=== PATIENT | female | born 1935 | race Caucasian/White ===

== ENCOUNTER 2019-05-18 19:50 | Outpatient (CLI) | payer MEDICARE, OTHER | END 2019-05-18 19:51 | disposition short-term general hospital (02) | LOC: EMS 19:50 | PROVIDERS: ATTEND Surgery | DX: R55 Syncope and collapse (principal) | CPT/HCPCS: A0425; A0427; A0888 ==

== ENCOUNTER 2019-12-04 13:49 | Outpatient (CLI) | payer MEDICARE, OTHER | END 2019-12-04 23:59 | disposition critical access hospital (66) | LOC: EMS 13:49 | PROVIDERS: ATTEND Surgery | DX: R07.9 Chest pain, unspecified (principal); R42 Dizziness and giddiness; R06.02 Shortness of breath; R51 Headache; Z20.828 Contact with and (suspected) exposure to other viral communicable diseases | CPT/HCPCS: A0425; A0427 ==

== ENCOUNTER 2019-12-04 14:14 | Emergency (ER) | payer MEDICARE, OTHER ==
[2019-12-04 14:47] LABS: BASOPHILS % (AUTO) 0.2 %; EOSINOPHILS # (AUTO) 0.4 10^3/uL (0.0-0.7); EOSINOPHILS % (AUTO) 4.5 %; HGB - HEMOGLOBIN 14.3 g/dL (12.0-16.0); LYMPHOCYTES # (AUTO) 0.3 10^3/uL (1.5-3.5); LYMPHOCYTES % (AUTO) 3.3 %; MEAN CORPUSCULAR HEMOGLOBIN 33.4 pg (27.0-31.0); MEAN CORPUSCULAR HGB CONC 33.8 g/dL (32.0-36.0); MEAN CORPUSCULAR VOLUME 98.8 fL (81.0-99.0); MEAN PLATELET VOLUME 12.8 fL (7.9-10.8); MONOCYTES % (AUTO) 12.1 %; NEUTROPHILS # (AUTO) 6.8 10^3/uL (1.5-6.6); NEUTROPHILS % (AUTO) 79.3 %; PLT - PLATELET COUNT 107 10^3/uL (130-450); RED BLOOD COUNT 4.28 10^6/uL (4.20-5.40); RED CELL DISTRIBUTION WIDTH 14.5 % (12.0-15.0); WHITE BLOOD COUNT 8.5 x10^3/uL (4.8-10.8)
--- NOTE | 2019-12-04 14:54 | XRAY Report ---
PROCEDURE: Chest 1 View X-Ray INDICATIONS: Chest Pain TECHNIQUE: One view of the chest was acquired. COMPARISON: None found. FINDINGS: Surgical changes and devices: None. Lungs and pleura: No pleural effusions or pneumothorax. Lungs are abnormal with a generalized pulmo nary edema pattern and also a band of increased radiodensity across the junction of the middle and up per thirds of the left lung. Mediastinum: Mediastinal contours appear normal. Heart size is normal. Reduced inspiratory volume Bones and chest wall: No suspicious bony lesions. Overlying soft tissues appear unremarkable. IMPRESSION: No comparisons. The current appearance is potentially a manifestation of acute congestive heart failu re in the setting of chest pain. As noted, there is a band of increased radiodensity across the left lung emanating laterally from the left hilum. Follow-up plain film imaging is recommended to confirm resolution of these abnormalities. The band of increased radiodensity could conceivably represent a m anifestation of "central atelectasis" in the setting of a left hilar/perihilar mass. Reviewed by: José Miguel Olvera MD on 12/04/2019 2:53 PM PDT Approved by: José Miguel Olvera MD on 12/04/2019 2:53 PM PDT Station ID: [id number]
[2019-12-04 14:59] LABS: ALBUMIN 3.3 g/dL (3.2-5.5); BILIRUBIN,TOTAL 0.7 mg/dL (0.2-1.0); CALCIUM 8.8 mg/dL (8.5-10.3); TOTAL PROTEIN 6.5 g/dL (6.7-8.2)
--- NOTE | 2019-12-04 15:35 | ED Physician Documentation ---
History of Present Illness - Stated complaint Stated Complaint: CP - Chief complaint Chief Complaint: Cardiac - History obtained from History obtained from: Patient - Additonal information Additional information: 84-year-old female presents to the emergency department from her care facility for evaluation of chest pain and dyspnea. She reports that since she moved to her care facility from [place] about 6 or 7 months ago she has had chest pain and shortness of breath. Patient was given 325 mg of aspirin in route. And MEÑO shows that she has had multiple presentations to [facility] for similar. Patient states that the chest pain has worsened over the last week. She does not endorse that it is worse with exertion but often causes her to catch her breath. She has had no fevers. She denies any cough or hemoptysis. No weight loss. No nausea vomiting or PMH: COPD and lung cancer (s/p radiation therapy) She also reports that she has a history of lung cancer in the past for which she has had treatment in attendance with her is a POLST form that indicates she is a DNR. However no medical history or medications are with the patient from her care facility The nurse has indicated me that the patient takes Combivent only for her COPD. She did recently finish a prescription of Macrobid for urinary tract infection. Review of Systems Constitutional: denies: Fever, Chills Ears: denies: Ear pain Cardiac: reports: Chest pain / pressure, Palpitations Respiratory: reports: Dyspnea. denies: Cough GI: denies: Abdominal Pain, Abdominal Swelling, Nausea, Vomiting : denies: Dysuria, Frequency, Hesitancy Skin: denies: Rash, Lesions Musculoskeletal: denies: Neck pain, Back pain Neurologic: denies: Generalized weakness, Focal weakness, Numbness, Syncope, Seizure, Confused, Headache, Head injury Psychiatric: denies: Depressed, Suicidal PD PAST MEDICAL HISTORY - Allergies Allergies/Adverse Reactions: Allergies Allergy/AdvReac Type Severity Reaction Status Date / Time No Known Drug Allergies Allergy Verified 12/04/19 15:41 PD ED PE EXPANDED - General General: Alert, No acute distress, Well developed/nourished - HEENT HEENT: Atraumatic, PERRL, EOMI - Neck Neck: Supple w/out meningeal sx, No tenderness - Cardiac Cardiac: Regular Rate, Regular Rhythm, Murmur Present, Radial strong equal, Cap refill < 2 sec - Respiratory Respiratory: Clear to ausultation leslie. No: Distress, Labored - Abdomen Abdomen: Normal Bowel sounds. No: Tender to palpation - Extremities Extremities: Normal - Neuro Neuro: Alert and Oriented X 3, Normal finger nose, Normal speech. No: Confused - GCS Eye Opening: Spontaneous Motor: Obeys Commands Verbal: Oriented Total: 15 Results - Vitals Vitals: Vital Signs - 24 hr 12/04/19 12/04/19 12/04/19 14:29 14:32 15:02 Temperature 36.8 C Heart Rate 76 77 77 Respiratory 16 24 24 Rate Blood Pressure 140/71 H 136/72 H 135/72 H O2 Saturation 96 94 93 12/04/19 12/04/19 12/04/19 15:30 16:13 16:30 Temperature Heart Rate 77 76 76 Respiratory 19 23 16 Rate Blood Pressure 123/105 H 128/70 139/66 H O2 Saturation 95 95 94 12/04/19 17:00 Temperature Heart Rate 75 Respiratory 20 Rate Blood Pressure 141/80 H O2 Saturation 92 Oxygen O2 Source Room air - EKG (time done) 1423 Rate: Rate (enter#) (75) Rhythm: NSR [place]: Normal Intervals: Normal [place] QRS: Normal Ischemia: Non specific changes Compare to prior EKG: Old EKG unavailable Computer interpretation: Agree with computer - Labs Labs: Laboratory Tests 12/04/19 12/04/19 12/04/19 14:40 14:40 14:40 WBC 8.5 RBC 4.28 Hgb 14.3 Hct 42.3 MCV 98.8 MCH 33.4 H MCHC 33.8 RDW 14.5 Plt Count 107 L MPV 12.8 H Neut # (Auto) 6.8 H Lymph # (Auto) 0.3 L [place] # (Auto) 1.0 Eos # (Auto) 0.4 Baso # (Auto) 0.0 Absolute Nucleated RBC 0.00 Nucleated RBC % 0.0 Sodium 139 Potassium 3.3 L Chloride 99 L Carbon Dioxide 27 Anion Gap 13.0 BUN 13 Creatinine 1.0 Estimated GFR (MDRD) 53 L Glucose 110 H Calcium 8.8 Total Bilirubin 0.7 AST 16 ALT 16 Alkaline Phosphatase 64 Troponin I High Sens 8.2 B-Natriuretic Peptide Total Protein 6.5 L Albumin 3.3 Globulin 3.2 Albumin/Globulin Ratio 1.0 Lipase 26 12/04/19 12/04/19 14:40 16:35 WBC RBC Hgb Hct MCV MCH MCHC RDW Plt Count MPV Neut # (Auto) Lymph # (Auto) [place] # (Auto) Eos # (Auto) Baso # (Auto) Absolute Nucleated RBC Nucleated RBC % Sodium Potassium Chloride Carbon Dioxide Anion Gap BUN Creatinine Estimated GFR (MDRD) Glucose Calcium Total Bilirubin AST ALT Alkaline Phosphatase Troponin I High Sens 12.3 B-Natriuretic Peptide 194 H Total Protein Albumin Globulin Albumin/Globulin Ratio Lipase - Rads (name of study) CXR Radiology: Final report received (No comparisons. The current appearance is potentially a manifestation of acute congestive failure in the setting of chest pain. As noted there is a band of increased radiodensity across the left lung emanating laterally from the left 8 helium. Follow-up plain film imaging is recommended to confir) PD MEDICAL DECISION MAKING - ED course Complexity details: reviewed results, re-evaluated patient, d/w patient, d/w senior product consultant (Gonzalez) ED course: 84-year-old female presents to the emergency department for evaluation of chest pain. She states that she has had chest pain for many months especially since moving to [place] from [place] in April but has worsened over the last week. - Her chest x-ray suggests may be mild heart failure. However she has no leg swellings or crackles. Her BNP is not significantly elevated and is under 200. Her EKG is nonischemic. An initial troponin was 8. I did repeated after a number of hours in the emergency department and it had risen to 12.9. I d iscussed this case with Dr. Renetta Roth the hospitalist on-call and asked for admission for cardiac work-up. However Dr. Silva felt that an anginal equivalent was not present at this time and the patient did not need to be brought in for a cardiac stress testing. She advised that the patient should follow-up with the primary doctor and be seen as an outpatient. Departure - Departure Disposition: 01 Home, Self Care Clinical Impression: Chest pain Qualifiers: Chest pain type: unspecified Qualified Code(s): R07.9 - Chest pain, unspecified Condition: Stable Record reviewed to determine appropriate education?: Yes Instructions: ED Chest Pain Atypical Unkn Cause Comments: [place] your EKG today looks okay. Your troponins are not elevated. I think it is important that you schedule a close follow-up with your primary doctor to discuss this ED visit to see if he would like to make a referral for you to a dialysis social worker. If at any point you find that you have worsening chest pain or shortness of breath or develop any fevers or cough please return immediately to the emergency department. Because your granddaughter has tested positive for COVID-19 we are also screening you today for COVID 19
[2019-12-04 18:05] VITALS: BP 154/83
== END 2019-12-04 18:08 | disposition home or self-care (01) ==
LOC: EDUNIT# → ED 14:14
DX: R07.9 Chest pain, unspecified (principal); J44.9 Chronic obstructive pulmonary disease, unspecified; Z85.118 Personal history of other malignant neoplasm of bronchus and lung; Z66 Do not resuscitate; Z20.828 Contact with and (suspected) exposure to other viral communicable diseases
CPT/HCPCS: 36415; 71045; 80053; 83690; 83880; 84484; 85025; 93005; 99284; U0004

== ENCOUNTER 2020-04-20 16:21 | Outpatient (CLI) | payer MEDICARE, OTHER | END 2020-04-20 16:22 | disposition short-term general hospital (02) | LOC: EMS 16:21 | PROVIDERS: ATTEND Surgery | DX: R07.9 Chest pain, unspecified (principal); R07.1 Chest pain on breathing; R05 Cough | CPT/HCPCS: A0425; A0429 ==

== ENCOUNTER 2020-04-21 11:22 | Outpatient (CLI) | payer MEDICARE, OTHER | END 2020-04-21 11:23 | disposition short-term general hospital (02) | LOC: EMS 11:22 | PROVIDERS: ATTEND Surgery | DX: R42 Dizziness and giddiness (principal); R11.2 Nausea with vomiting, unspecified | CPT/HCPCS: A0425; A0427; A0888 ==

== ENCOUNTER 2021-02-10 17:55 | Outpatient (CLI) | payer MEDICARE, OTHER | END 2021-02-10 17:56 | disposition short-term general hospital (02) | LOC: EMS 17:55 | DX: Z04.3 Encounter for examination and observation following other accident (principal); M25.532 Pain in left wrist | CPT/HCPCS: A0425; A0429 ==

== ENCOUNTER 2021-03-23 15:02 | Outpatient (CLI) | payer MEDICARE, OTHER ==
--- NOTE | 2021-03-23 15:59 | XRAY Report ---
PROCEDURE: Knee 2 View RT INDICATIONS: KNEE PAIN TECHNIQUE: 2 views of the right knee(s) were acquired. COMPARISON: None. FINDINGS: BONES/JOINT: No acute, displaced fracture or dislocation. Small suprapatellar joint effusion. Diffus e osteopenia. Mild tricompartment osteophytosis. The joint spaces are maintained. SOFT TISSUES: No significant abnormality. Evidence of meniscal calcification. IMPRESSION: 1.No acute osseous abnormality. Reviewed by: Lucien Allen MD on 03/23/2021 3:57 PM PST Approved by: Lucien Allen MD on 03/23/2021 3:57 PM PST Station ID: [id number]
== END 2021-03-23 15:03 | disposition home or self-care (01) ==
LOC: DI 15:02
PROVIDERS: ATTEND Internal Medicine
DX: M25.561 Pain in right knee (principal)

== ENCOUNTER 2021-04-06 13:18 | Outpatient (CLI) | payer MEDICARE, OTHER | END 2021-04-06 13:19 | disposition critical access hospital (66) | LOC: EMS 13:18 | DX: R51.9 Headache, unspecified (principal); R53.83 Other fatigue; R09.02 Hypoxemia | CPT/HCPCS: A0425; A0429 ==

== ENCOUNTER 2021-04-06 13:37 | Inpatient (IN) | payer MEDICARE, OTHER ==
--- NOTE | 2021-04-06 13:56 | ED Physician Documentation ---
History of Present Illness - Stated complaint Stated Complaint: SOA - Chief complaint Chief Complaint: Resp - Additonal information Additional information: 85-year-old female is sent to the ER via EMS for evaluation of shortness of air and labored breathing. I was contacted by her care provider Janeen Lopez who reported that patient has recently been treated twice for pneumonia with Levaquin followed by Bactrim. However over the course of the last few days she has been having worsening shortness of air and this a.m. her oxygen saturations declined into the mid 80s. She is not typically oxygen dependent. Patient does have a history of dementia so somewhat limited from the patient. The patient also has a history of lung cancer which was treated with radiation only when she was a resident of [place]. Her primary care provider was in the process of trying to obtain an outpatient CAT scan for further evaluation of her lungs to determine if she had a return of cancer. Review of Systems Unable to obtain: Dementia, Other (chart) PD PAST MEDICAL HISTORY - Allergies Allergies/Adverse Reactions: Allergies Allergy/AdvReac Type Severity Reaction Status Date / Time No Known Drug Allergies Allergy Verified 04/06/21 13:47 PD ED PE EXPANDED - General General: Lethargic - Cardiac Cardiac: Regular Rate, Radial strong equal, Pedal strong equal, Cap refill < 2 sec - Respiratory Respiratory: Rhonchi (generalized rhonchi; sats decline to 84% room air). No: Clear to ausultation leslie, Distress, Labored - Abdomen Abdomen: Normal Bowel sounds, Tender to palpation (right side; no guarding or rebound) - Derm Derm: Normal color, Warm and dry - GCS Eye Opening: Spontaneous Motor: Obeys Commands Verbal: Confused Total: 14 Results - Vitals Vitals: Vital Signs - 24 hr 04/06/21 04/06/21 04/06/21 13:43 14:00 16:00 Temperature 36.6 C Heart Rate 58 L 55 L 48 L Respiratory 16 14 14 Rate Blood Pressure 108/53 L 112/57 L 128/68 O2 Saturation 87 L 95 99 Oxygen O2 Source Room air Oxygen Flow Rate 2 - EKG (time done) 1416 Rate: Rate (enter#) (55) Rhythm: NSR [place]: Normal Intervals: Normal [place]. No: Prolonged QT QRS: Low voltage Ischemia: Normal ST segments Compare to prior EKG: Old EKG unavailable Computer interpretation: Agree with computer - Labs Labs: Laboratory Tests 04/06/21 04/06/21 04/06/21 14:14 14:14 14:14 WBC 9.3 RBC 3.88 L Hgb 12.8 Hct 38.5 MCV 99.2 H MCH 33.0 H MCHC 33.2 RDW 14.3 Plt Count 127 L MPV 11.9 H Neut # (Auto) 7.8 H Lymph # (Auto) 0.4 L [place] # (Auto) 0.7 Eos # (Auto) 0.4 Baso # (Auto) 0.0 Absolute Nucleated RBC 0.00 Nucleated RBC % 0.0 Sodium 139 Potassium 3.7 Chloride 102 Carbon Dioxide 26 Anion Gap 11.0 BUN 13 Creatinine 0.8 Estimated GFR (MDRD) 69 L Glucose 93 Lactic Acid Calcium 8.7 Total Bilirubin 1.0 AST 16 ALT 13 Alkaline Phosphatase 126 H Troponin I High Sens 28.3 H* B-Natriuretic Peptide Total Protein 6.3 L Albumin 3.2 Globulin 3.1 Albumin/Globulin Ratio 1.0 Lipase 19 L Urine Color Urine Clarity Urine pH Ur Specific [place] Urine Protein Urine Glucose (UA) Urine Ketones Urine Occult Blood Urine Nitrite Urine Bilirubin Urine Urobilinogen Ur Leukocyte Esterase Ur Microscopic Review Urine Culture Comments 04/06/21 04/06/21 04/06/21 14:14 14:14 15:36 WBC RBC Hgb Hct MCV MCH MCHC RDW Plt Count MPV Neut # (Auto) Lymph # (Auto) [place] # (Auto) Eos # (Auto) Baso # (Auto) Absolute Nucleated RBC Nucleated RBC % Sodium Potassium Chloride Carbon Dioxide Anion Gap BUN Creatinine Estimated GFR (MDRD) Glucose Lactic Acid 1.0 Calcium Total Bilirubin AST ALT Alkaline Phosphatase Troponin I High Sens B-Natriuretic Peptide 298 H Total Protein Albumin Globulin Albumin/Globulin Ratio Lipase Urine Color YELLOW Urine Clarity CLEAR Urine pH 5.5 Ur Specific [place] 1.020 Urine Protein NEGATIVE Urine Glucose (UA) NEGATIVE Urine Ketones NEGATIVE Urine Occult Blood NEGATIVE Urine Nitrite NEGATIVE Urine Bilirubin NEGATIVE Urine Urobilinogen 1 (NORMAL) Ur Leukocyte Esterase NEGATIVE Ur Microscopic Review NOT INDICATED Urine Culture Comments NOT INDICATED - Rads (name of study) CXR Radiology: Final report received (Left parahilar hilar prominence recommend CT of the chest to differentiate lung scarring or consolidation versus mass or adenopathy) CT chest w Radiology: Final report received (Groundglass opacity in left upper lobe. There is mild volume loss this could be due to atelectasis or pneumonia. Small amount of pleural feud at the left major fissure. No pulmonary embolism no adenopathy) PD MEDICAL DECISION MAKING - ED course Complexity details: reviewed results, re-evaluated patient, considered differential ED course: 85-year-old female presents emergency department for evaluation of hypoxia and worsening cough. She does have a remote history of lung cancer. This was treated in [place] once in 2004 and again in 2013 with a gamma knife. She has recently completed courses of Bactrim and Levaquin. Her primary provider was seeing her today and found that she was developing progressive hypoxia and thus referred her to the ER for further evaluation. Chest x-ray suggested left perihilar/hilar prominence. Subsequent CT of the chest showed a focal pneumonia in the left upper lobe. CT of the abdomen was unremarkable. No findings of cancer. Screening labs show no leukocytosis however she has had persistent hypoxia when on room air here in the ER. She has a high curb 65 and PSI index score therefore she will be admitted to the hospital. I discussed this case with Dr. Alonso who will admit her. I have initiated ceftriaxone and azithromycin in the ER. Patient does not present as septic Departure - Departure Disposition: 66 [facility] DC/Xfer Clinical Impression: Hypoxia, History of lung cancer, Elevated troponin Left upper lobe pneumonia Qualifiers: Pneumonia type: due to unspecified organism Qualified Code(s): J18.9 - Pneumonia, unspecified organism Dementia Qualifiers: Dementia type: unspecified type Dementia behavioral disturbance: without behavioral disturbance Qualified Code(s): F03.90 - Unspecified dementia without behavioral disturbance
--- NOTE | 2021-04-06 14:12 | XRAY Report ---
PROCEDURE: Chest 1 View X-Ray INDICATIONS: chest pain TECHNIQUE: One view of the chest was acquired. COMPARISON: 12/04/2019. FINDINGS: Surgical changes and devices: None. Lungs and pleura: Linear opacities noted in the left midlung which may represent parenchymal scarring or atelectasis. Prominence noted in the left hilum could be due to scarring, however adenopathy or p erihilar mass can't be excluded by plain from radiograph. Elevation of the right hemidiaphragm. Mediastinum: Mediastinal contours appear normal. Heart size is normal. Bones and chest wall: No suspicious bony lesions. Overlying soft tissues appear unremarkable. IMPRESSION: Left parahilar/hilar prominence. Recommend CT scan of the chest to differentiate lung scarring or con solidation from hilar/parahilar mass or adenopathy. Reviewed by: Mei Peñaloza MD, PhD on 04/06/2021 2:11 PM PST Approved by: Mei Peñaloza MD, PhD on 04/06/2021 2:11 PM PST Station ID: [id number]
[2021-04-06] MEDS ORDERED: IOPAMIDOL-300 100 ML VIAL ONE (14:15)
[2021-04-06 14:21] LABS: BASOPHILS % (AUTO) 0.3 %; EOSINOPHILS # (AUTO) 0.4 10^3/uL (0.0-0.7); HCT - HEMATOCRIT 38.5 % (37.0-47.0); HGB - HEMOGLOBIN 12.8 g/dL (12.0-16.0); LYMPHOCYTES # (AUTO) 0.4 10^3/uL (1.5-3.5); LYMPHOCYTES % (AUTO) 3.9 %; MEAN CORPUSCULAR HGB CONC 33.2 g/dL (32.0-36.0); MEAN CORPUSCULAR VOLUME 99.2 fL (81.0-99.0); MEAN PLATELET VOLUME 11.9 fL (7.9-10.8); MONOCYTES # (AUTO) 0.7 10^3/uL (0.0-1.0); MONOCYTES % (AUTO) 7.8 %; NEUTROPHILS # (AUTO) 7.8 10^3/uL (1.5-6.6); NEUTROPHILS % (AUTO) 83.7 %; PLT - PLATELET COUNT 127 10^3/uL (130-450); RED BLOOD COUNT 3.88 10^6/uL (4.20-5.40); RED CELL DISTRIBUTION WIDTH 14.3 % (12.0-15.0); WHITE BLOOD COUNT 9.3 x10^3/uL (4.8-10.8)
[2021-04-06 14:39] LABS: ALBUMIN 3.2 g/dL (3.2-5.5); CALCIUM 8.7 mg/dL (8.5-10.3); CREATININE 0.8 mg/dL (0.4-1.0); POTASSIUM 3.7 mmol/L (3.5-5.0); TOTAL PROTEIN 6.3 g/dL (6.7-8.2)
[2021-04-06 15:43] LABS: BILIRUBIN,URINE NEGATIVE (NEGATIVE); GLUCOSE, URINE (UA) NEGATIVE (NEGATIVE); KETONES,URINE (UA) NEGATIVE (NEGATIVE); LEUKOCYTE ESTERASE, URINE NEGATIVE (NEGATIVE); NITRITE,URINE NEGATIVE (NEGATIVE); OCCULT BLOOD,URINE NEGATIVE (NEGATIVE); PH,URINE 5.5 PH (5.0-7.5); PROTEIN,URINE NEGATIVE (NEGATIVE); UROBILINOGEN,URINE 1 (NORMAL) E.U./dL (NORMAL)
[2021-04-06 15:47] LABS: CLARITY,URINE CLEAR (CLEAR)
--- NOTE | 2021-04-06 15:49 | CT Report ---
PROCEDURE: CHEST W INDICATIONS: recent cough, tx for pneumonia; hx of lung ca CONTRAST: IV CONTRAST: Isovue 300 ml: 100 PO CONTRAST: *NO PO CONTRAST TECHNIQUE: After the administration of intravenous contrast, 1 mm axial images were acquired from the pulmonary apices through the posterior costophrenic angles. Axial 5 mm soft tissue kernel reconstructions were performed as well as 8 mm axial MIP and coronal and sagittal 5 mm reformations. For radiation dose reduction, the following was used: automated exposure control, adjustment of mA and/or kV according to patient size. COMPARISON: Same day CT abdomen and pelvis. CXR earlier today, 12/04/2019. FINDINGS: Image quality: Excellent. Lungs and pleura: There is a small amount pleural fluid at the posterior left major fissure which ma y be loculated. There is a trace amount of dependent pleural fluid bilaterally. There is mild bibasil ar hazy opacity. There is left upper lobe volume loss. There is mild ground glass opacity in the left upper lobe. There is moderate emphysematous change. There is bronchial wall thickening. The central airways are clear. There may be a mucous plugging in the region of the left hilum. No pneumothorax. Mediastinum: Heart size is within normal limits. Coronary artery calcifications. No pericardial eff usion. No mediastinal or hilar adenopathy by size criteria. Thoracic aorta and central pulmonary ar teries are normal in size. No pulmonary embolism. Esophagus is normal in caliber. No hiatal hernia. Bones and chest wall: No suspicious bony lesions. Kyphosis. No vertebral body compression fractures. No axillary or supraclavicular adenopathy by size criteria. The thyroid is normal in size and ther e are no incidental findings. Abdomen: Please see separately dictated CT abdomen and pelvis. IMPRESSION: 1. Mild ground glass opacity in the left upper lobe. There is mild volume loss. This could be due to atelectasis or pneumonia. 2. Small amount of pleural fluid at the left major fissure. It is possible this fluid could be locula mariana. Trace deep and and pleural effusions. 3. No pulmonary embolism. No adenopathy. Reviewed by: Janusz Baker MD on 04/06/2021 3:48 PM PST Approved by: Janusz Baker MD on 04/06/2021 3:48 PM PST Station ID: [id number]
--- NOTE | 2021-04-06 15:57 | CT Report ---
PROCEDURE: Abdomen/Pelvis W INDICATIONS: Cough, hypoxia, history of cancer CONTRAST: IV CONTRAST: Isovue 300 ml: 100 PO CONTRAST: *NO PO CONTRAST TECHNIQUE: After the administration of intravenous contrast, 5 mm thick sections acquired from the diaphragms to the symphysis. 5 mm thick coronal and sagittal reformats were acquired. For radiation dose reducti on, the following was used: automated exposure control, adjustment of mA and/or kV according to penelope ent size. COMPARISON: CT chest also performed today. FINDINGS: Image quality: Excellent. ABDOMEN: Lung bases: Trace pleural effusions seen. Bibasilar atelectasis. Possible small hiatal hernia. Please see separate dictated same day CT chest. Solid organs: Liver and spleen are normal in size and enhancement. Multiple well-circumscribed hepat ic hypodensities in the liver. These have the appearance of benign cysts. Gallbladder is distended. No calcified gallstones. Biliary system is non dilated. Pancreas enhances normally. No adrenal nod ules. Kidneys demonstrate normal size and enhancement, without hydronephrosis. Right kidney superior pole cortical hypodensity which is too small to further characterize. Peritoneum and bowel: Bowel loops demonstrate normal wall thickness and caliber. Diffuse diverticul osis. Normal appendix. No free fluid or air. Nodes and vessels: No retroperitoneal or mesenteric adenopathy by size criteria. Infrarenal abdomina l aortic ectasia measuring 2.4 cm. Right renal artery is duplicated. Miscellaneous: No ventral hernias. PELVIS: Genitourinary: Bladder wall thickness is normal. Calcified uterine fibroid. Miscellaneous: No inguinal hernias or adenopathy. Bones: Bones have a heterogeneous appearance. No destructive osseous lesion seen. No vertebral body c ompression fracture. IMPRESSION: 1. Heterogeneous appearance of the vertebral column. No obstructive osseous lesion is seen. Consider further evaluation with MRI or nuclear medicine bone scan. 2. No adenopathy. 3. No acute inflammatory process demonstrated. No free fluid. Please see separately dictated same day CT chest. Reviewed by: Janusz Baker MD on 04/06/2021 3:56 PM [facility] Approved by: Janusz Baker MD on 04/06/2021 3:56 PM PST Station ID: [id number]
[2021-04-06] MEDS ORDERED: cefTRIAXone 2 GM in SODIUM CHLORIDE 0.9% MINIBAG 100 ML IV STA (16:18)
[2021-04-06] MEDS ORDERED: AZITHROMYCIN INJ 500 MG in SODIUM CHLORIDE 0.9% 250 ML IV STA (16:18)
[2021-04-06] MEDS ORDERED: SODIUM CHLORIDE FLUSH 0.9% 10 ML SYRINGE IVP PRN (16:53)
[2021-04-06] MEDS ORDERED: ONDANSETRON ODT 4 MG TABLET TL PRN (16:53)
[2021-04-06] MEDS ORDERED: ACETAMINOPHEN 325 MG TABLET PO PRN ×2 (16:53→20:35)
[2021-04-06] MEDS ORDERED: LACTATED RINGERS 1,000 ML IV SCH (17:00)
[2021-04-06 17:59] LABS: B. PARAPERTUSSIS- RESP PCR PAN NOT DETECTED; B. PERTUSSIS- RESP PCR PANEL NOT DETECTED; C. PNEUMONIAE- RESP PCR PANEL NOT DETECTED; CORONAVIRUS 229E-RESP PCR NOT DETECTED; CORONAVIRUS HKU1-RESP PCR NOT DETECTED; CORONAVIRUS NL63-RESP PCR NOT DETECTED; CORONAVIRUS OC43-RESP PCR NOT DETECTED; HUMAN METAPNEUMOVIRUS NOT DETECTED; INFLUENZA A- RESP PCR PANEL NOT DETECTED; INFLUENZA B - RESP PCR PANEL NOT DETECTED; M. PNEUMONIAE- RESP PCR PANEL NOT DETECTED; PARAINFLUENZA VIRUS 1 NOT DETECTED; PARAINFLUENZA VIRUS 2 NOT DETECTED; PARAINFLUENZA VIRUS 3 NOT DETECTED; PARAINFLUENZA VIRUS 4 NOT DETECTED; RHINOVIRUS/ENTEROVIRUS NOT DETECTED; RSV- RESP PCR PANEL NOT DETECTED; SARS-CoV-2 -RESP PCR PANEL NOT DETECTED
[2021-04-06] MEDS: SODIUM CHLORIDE FLUSH 0.9% 10 ML SYRINGE IVP SCH ×2 (18:12→23:58)
--- NOTE | 2021-04-06 19:57 | HISTORY & PHYSICAL EXAMINATION ---
Chief Complaint - Chief Complaint Chief Complaint: SOB, cough, sent in from PCP office due to desaturation on r.a. History of Present Illness - Admitted From Admitted From:: ED - History Obtained From History obtained from: ED provider and the patient - History of Present Illness HPI Comment/Other: This is a 85-year-old white female with history of dementia who lives at [facility], and history of lung cancer (treated with radiation in 2004 and gamma knife in 2013 in [place]). The patient has recently required 2 courses of treatment for pneumonia, having received Levaquin and then Bactrim as an outpatient. Despite this, she has had worsening shortness of breath over the last 2 to 3 days. She was seen by her PCP, Janeen Lopez, today and oxygen saturation in the PCP office was 84% on room air and the patient was sent to the ED. There had been a plan to do outpatient chest CT to evaluate if the lung cancer had recurred. In our ED she was saturating at 87% on room air and was mildly tachypneic. A CT chest was done that showed left upper lobe pneumonia (read as ground glass opacification) and trace bilateral pleural effusion, no description of a lung mass or lymphadenopathy. In the ED, the patient was started on supplemental O2 and given Ceftriaxone and Zithromax treatment for a community-acquired pneumonia and is being admitted to the Hospitalist service. The patient provides very little details of her history because of her dementia, but feels better now except for a hacking, wet cough, that is non-productive. A POLST form is available and the patient is a DNR and wants comfort-focus treatment. 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 She quit smoking in 2004 and drinks no alcohol. - Substance History Use: Uses substance without health or social issues: NONE Dependence: Experiences withdrawal or developed tolerances: NONE - POLST Patient has POLST: Yes POLST Status: DNR Meds/Allgy - Home Medications Home Medications: Ambulatory Orders Medication Instructions Recorded Confirmed Citalopram [CeleXA] 10 mg PO DAILY 04/06/21 Donepezil [Aricept] 5 mg PO DAILY 04/06/21 - Allergies Allergies/Adverse Reactions: Allergies Allergy/AdvReac Type Severity Reaction Status Date / Time No Known Drug Allergies Allergy Verified 04/06/21 13:47 Review of Systems - Constitutional Constitutional: reports: Weakness - Respiratory Respiratory: reports: Cough, SOB with exertion - All Other Systems All Other Systems: reports: Other (Limited ROS because of the patient's dementia with significant confusion and poor memory) Exam - Vital Signs Reviewed Vital Signs: Yes Vital Signs: Vital Signs x48h Temp Pulse Pulse Resp BP BP Pulse Ox 04/06/21 17:45 36.6 C 56 L 16 132/66 H 100 04/06/21 16:00 48 L 14 128/68 99 04/06/21 14:00 55 L 14 112/57 L 95 04/06/21 13:43 36.6 C 58 L 16 108/53 L 87 L - Physical Exam General Appearance: positive: No acute distress, Alert, Other (alopecia) Eyes Bilateral: positive: Normal inspection, EOMI ENT: positive: ENT inspection nml, No signs of dehydration Neck: positive: Nml inspection Cardiovascular: positive: Regular rate & rhythm, No murmur Abdomen: positive: Non-tender, Nml bowel sounds, No distention Skin: positive: Warm, Dry Extremities: positive: Non-tender, No pedal edema Neurologic/Psychiatric: positive: Motor nml, Disoriented to time (She said the date was "") Conclusion/Plan - Problem List (1) Acute respiratory failure with hypoxia Conclusion/Plan: The etiology is her infiltrate on chest imaging. We will treat the underlying cause. Continue with supplemental oxygen, weaning down as possible, keeping sats greater than 92% (2) Left upper lobe pneumonia Conclusion/Plan: She will be treated with empiric ceftriaxone and Zithromax for a community- acquired pneumonia. The CT scan does suggest there is evidence of a mucous plug in the area that has the groundglass opacification therefore we will start incentive spirometry and RT for clearance of secretions. Continue empiric ceftriaxone and Zithromax. Start Mucinex. Start probiotics Continue with supplemental oxygen. Will order PT and OT evaluation Qualifiers: Pneumonia type: due to unspecified organism Qualified Code(s): J18.9 - Pneumonia, unspecified organism (3) Dementia Conclusion/Plan: Await for her medications to be reconciled, resume any dementia medicines that she is on, is the plan. Qualifiers: Dementia type: unspecified type Dementia behavioral disturbance: without behavioral disturbance Qualified Code(s): F03.90 - Unspecified dementia without behavioral disturbance (4) History of lung cancer Conclusion/Plan: CT scan was done that did not show evidence of lung mass or perihilar lymph nodes. - Lab Results Fish Bones: 04/06/21 14:14 04/06/21 14:14 - Diagnostic Imaging Results Diagnostic Imaging Results: positive: Final report reviewed - Other Other Results/Comments: Attestation: The patient is expected to be discharged or transferred to another facility for 96 hours: Yes.
[2021-04-06] MEDS ORDERED: IOPAMIDOL-300 100 ML VIAL IVP ONE (20:36)
[2021-04-06] MEDS: guaiFENesin/CODEINE 5 ML UDC PO PRN (21:48)
[2021-04-06] MEDS: guaiFENesin 600 MG TABLET PO SCH (21:48)
[2021-04-07 06:41] LABS: BASOPHILS % (AUTO) 0.5 %; EOSINOPHILS # (AUTO) 0.4 10^3/uL (0.0-0.7); EOSINOPHILS % (AUTO) 6.4 %; HCT - HEMATOCRIT 37.5 % (37.0-47.0); HGB - HEMOGLOBIN 12.4 g/dL (12.0-16.0); LYMPHOCYTES # (AUTO) 0.4 10^3/uL (1.5-3.5); MEAN CORPUSCULAR HGB CONC 33.1 g/dL (32.0-36.0); MEAN CORPUSCULAR VOLUME 99.7 fL (81.0-99.0); MEAN PLATELET VOLUME 12.3 fL (7.9-10.8); MONOCYTES # (AUTO) 0.5 10^3/uL (0.0-1.0); MONOCYTES % (AUTO) 9.5 %; NEUTROPHILS # (AUTO) 4.1 10^3/uL (1.5-6.6); NEUTROPHILS % (AUTO) 75.4 %; PLT - PLATELET COUNT 122 10^3/uL (130-450); RED BLOOD COUNT 3.76 10^6/uL (4.20-5.40); RED CELL DISTRIBUTION WIDTH 14.2 % (12.0-15.0); WHITE BLOOD COUNT 5.5 x10^3/uL (4.8-10.8)
[2021-04-07 07:42] LABS: CALCIUM 8.3 mg/dL (8.5-10.3); CREATININE 0.8 mg/dL (0.4-1.0); POTASSIUM 3.3 mmol/L (3.5-5.0)
[2021-04-07] MEDS ORDERED: cefTRIAXone 2 GM in SODIUM CHLORIDE 0.9% MINIBAG 100 ML IV SCH (09:00)
[2021-04-07] MEDS ORDERED: POTASSIUM CHLORIDE 20 MEQ TABLET PO ONE (09:12)
[2021-04-07] MEDS: AZITHROMYCIN INJ 500 MG in SODIUM CHLORIDE 0.9% 250 ML IV SCH (09:31)
[2021-04-07] MEDS: SACCHAROMYCES BOULARDII 250 MG CAPSULE PO SCH ×2 (09:31→17:34)
[2021-04-07] MEDS: ENOXAPARIN 40 MG/0.4 ML SYRINGE SUBQ SCH (09:35)
[2021-04-07] MEDS: guaiFENesin 600 MG TABLET PO SCH ×2 (09:35→21:24)
[2021-04-07] MEDS: cefTRIAXone 2 GM in SODIUM CHLORIDE 0.9% MINIBAG 100 ML IV SCH (10:30)
[2021-04-07] MEDS: SODIUM CHLORIDE FLUSH 0.9% 10 ML SYRINGE IVP SCH ×2 (11:00→17:35)
--- NOTE | 2021-04-07 11:33 | PHARMACY PROGRESS NOTE ---
- Best Possible Medication History Admit Date and Time: 04/06/21 3512 Processed by: Pharmacy Medication History completed: Yes Patient Interview: Completed As the person ultimately responsible for medication therapy, providers are able to order a medication from an existing home medication list in [facility] via the "Reconcile Routine" prior to Confirmation of that medication by legal support analyst. Such practice is discouraged except when the physician, in their clinical cristian gment, deems that a medical need exists for a medication without regard to previous use.
--- NOTE | 2021-04-07 17:19 | PROVIDER PROGRESS NOTE ---
Subjective - Prog Note Date Prog Note Date: 04/07/21 - Subjective Subjective: She feels improved from a dyspnea standpoint. Still has a cough. She does not have her glasses so has had a difficult time seeing. Current Medications - Current Medications Current Medications: Active Medications Acetaminophen (Acetaminophen 325 Mg Tablet) 650 mg PO Q4HR PRN PRN Reason: Pain or Fever > 38C (100.4F) Enoxaparin Sodium (Enoxaparin 40 Mg/0.4 Ml Syringe) 40 mg SUBQ DAILY [facility] Last Admin: 04/07/21 09:35 Dose: 40 mg Documented by: Guaifenesin (Guaifenesin 600 Mg Tablet) 600 mg PO BID [facility] Last Admin: 04/07/21 09:35 Dose: 600 mg Documented by: Guaifenesin/Codeine Phosphate (Guaifenesin/Codeine 5 Ml Udc) 5 ml PO Q6HR PRN PRN Reason: Cough Last Admin: 04/06/21 21:48 Dose: 5 ml Documented by: Azithromycin 500 mg/ Sodium (Chloride) 250 mls @ 250 mls/hr IV DAILY [facility] Stop: 04/08/21 09:59 Last Infusion: 04/07/21 10:31 Dose: Infused Documented by: Ceftriaxone Sodium 2 gm/ (Sodium Chloride) 100 mls @ 200 mls/hr IV DAILY [facility] Stop: 04/10/21 09:29 Last Infusion: 04/07/21 11:00 Dose: Infused Documented by: Ondansetron HCl (Ondansetron Odt 4 Mg Tablet) 4 mg TL Q6HR PRN PRN Reason: Nausea / Vomiting Saccharomyces Boulardii (Saccharomyces Boulardii 250 Mg Capsule) 250 mg PO BIDWM [facility] Last Admin: 04/07/21 09:31 Dose: 250 mg Documented by: Sodium Chloride (Sodium Chloride Flush 0.9% 10 Ml Syringe) 10 ml IVP PRN PRN PRN Reason: NEEDED PER PROVIDER ORDERS Sodium Chloride (Sodium Chloride Flush 0.9% 10 Ml Syringe) 10 ml IVP 0100,0900,1700 [facility] Last Admin: 04/07/21 11:00 Dose: 10 ml Documented by: Citalopram [CeleXA] 10 mg PO DAILY 04/06/21 Donepezil [Aricept] 5 mg PO DAILY 04/06/21 Docusate Sodium 100Mg Capsule [Colace 100Mg Capsule] 100 mg PO BID 04/07/21 Lifitegrast [Xiidra] 1 drops EACHEYE BID 04/07/21 Nitrofurantoin Macrocrystal [Macrodantin] 50 mg PO QPM 04/07/21 Objective - Vital Signs/Intake & Output Reviewed Vital Signs: Yes Vital Signs: Vital Signs x48h Temp Pulse Pulse Pulse Resp BP BP 04/07/21 10:45 68 67 114/49 L 04/07/21 10:00 36.4 C L 66 20 109/53 L BP Pulse Ox 04/07/21 10:45 121/55 L 04/07/21 10:00 91 L Intake & Output: Intake & Output 04/04/21 04/05/21 04/06/21 04/07/21 23:59 23:59 23:59 23:59 Intake Total 450 2009 Balance 450 2009 - Objective General Appearance: positive: No acute distress, Alert Eyes Bilateral: positive: Normal inspection, Conjunctivae nml ENT: positive: ENT inspection nml, Other (Nasal cannula in place.) Neck: positive: Nml inspection Respiratory: positive: No respiratory distress, Rhonchi. negative: Wheezes, Rales Cardiovascular: positive: Regular rate & rhythm. negative: Tachycardia Abdomen: positive: Non-tender, No distention. negative: Tenderness Skin: positive: Warm, Dry Extremities: positive: No pedal edema Neurologic/Psychiatric: negative: Disoriented to person, Disoriented to place - Lab Results Fish Bones: 04/07/21 06:07 04/07/21 06:07 Other Labs: Lab Results x24hrs 04/07/21 04/07/21 04/06/21 Range/Units 06:07 06:07 15:24 WBC 5.5 (4.8-10.8) x10^3/uL RBC 3.76 L (4.20-5.40) 10^6/uL Hgb 12.4 (12.0-16.0) g/dL Hct 37.5 (37.0-47.0) % MCV 99.7 H (81.0-99.0) fL MCH 33.0 H (27.0-31.0) pg MCHC 33.1 (32.0-36.0) g/dL RDW 14.2 (12.0-15.0) % Plt Count 122 L (130-450) 10^3/uL MPV 12.3 H (7.9-10.8) fL Neut # (Auto) 4.1 (1.5-6.6) 10^3/uL Lymph # (Auto) 0.4 L (1.5-3.5) 10^3/uL Pierce # (Auto) 0.5 (0.0-1.0) 10^3/uL Eos # (Auto) 0.4 (0.0-0.7) 10^3/uL Baso # (Auto) 0.0 (0.0-0.1) 10^3/uL Absolute Nucleated RBC 0.00 x10^3/uL Nucleated RBC % 0.0 /100WBC Sodium 137 (135-145) mmol/L Potassium 3.3 L (3.5-5.0) mmol/L Chloride 102 (101-111) mmol/L Carbon Dioxide 26 (21-32) mmol/L Anion Gap 9.0 (6-13) BUN 15 (6-20) mg/dL Creatinine 0.8 (0.4-1.0) mg/dL Estimated GFR (MDRD) 69 L (>89) Glucose 81 (70-100) mg/dL Calcium 8.3 L (8.5-10.3) mg/dL Nasal Adenovirus (PCR) NOT DETECTED Nasal B. parapertussis DNA (PCR) NOT DETECTED Nasal Coronavir 229E PCR NOT DETECTED Nasal Coronavir HKU1 PCR NOT DETECTED Nasal Coronavir NL63 PCR NOT DETECTED Nasal Coronavir OC43 PCR NOT DETECTED Nasal Enterovir/Rhinovir PCR NOT DETECTED Nasal Influenza B PCR NOT DETECTED Nasal Influenza A PCR NOT DETECTED Nasal Parainfluen 1 PCR NOT DETECTED Nasal Parainfluen 2 PCR NOT DETECTED Nasal Parainfluen 3 PCR NOT DETECTED Nasal Parainfluen 4 PCR NOT DETECTED Nasal RSV (PCR) NOT DETECTED Nasal B.pertussis DNA PCR NOT DETECTED Nasal C.pneumoniae (PCR) NOT DETECTED Haim Human Metapneumo PCR NOT DETECTED Nasal M.pneumoniae (PCR) NOT DETECTED Nasal SARS-CoV-2 (PCR) NOT DETECTED ABX Reporting Has patient been on IV antibiotics over the past 48 hours?: Yes Assessment/Plan - Problem List (1) Left upper lobe pneumonia Impression: This is the cause of her hypoxia and dyspnea. Imaging revealed left upper lobe infiltrate. She is improved today but continues to require supplemental oxygen. We will keep her on ceftriaxone and azithromycin. We will look to transition her to oral antibiotics tomorrow. Qualifiers: Pneumonia type: due to unspecified organism Qualified Code(s): J18.9 - Pneumonia, unspecified organism (2) Hypoxia Impression: This is secondary to the pneumonia. She continues to require 1 to 2 L of oxygen via nasal cannula. Plan as mentioned above. (3) Dementia Impression: Stable. We are continuing her home medications. Qualifiers: Dementia type: unspecified type Dementia behavioral disturbance: without behavioral disturbance Qualified Code(s): F03.90 - Unspecified dementia without behavioral disturbance (4) History of lung cancer Impression: Imaging did not reveal any obvious nodule or lymphadenopathy to suggest malignancy.
[2021-04-07] MEDS: NITROFURANTOIN MACRO 100 MG CAPSULE PO SCH (21:23)
[2021-04-08] MEDS: SODIUM CHLORIDE FLUSH 0.9% 10 ML SYRINGE IVP SCH ×3 (00:20→16:59)
[2021-04-08] MEDS ORDERED: MORPHINE 2 MG/ML CARPUJECT IVP ONE (05:15)
[2021-04-08 06:26] LABS: BASOPHILS % (AUTO) 0.3 %; EOSINOPHILS # (AUTO) 0.3 10^3/uL (0.0-0.7); EOSINOPHILS % (AUTO) 4.3 %; HCT - HEMATOCRIT 39.9 % (37.0-47.0); HGB - HEMOGLOBIN 13.3 g/dL (12.0-16.0); LYMPHOCYTES # (AUTO) 0.3 10^3/uL (1.5-3.5); LYMPHOCYTES % (AUTO) 4.8 %; MEAN CORPUSCULAR HEMOGLOBIN 33.2 pg (27.0-31.0); MEAN CORPUSCULAR HGB CONC 33.3 g/dL (32.0-36.0); MEAN CORPUSCULAR VOLUME 99.5 fL (81.0-99.0); MEAN PLATELET VOLUME 12.3 fL (7.9-10.8); MONOCYTES # (AUTO) 0.4 10^3/uL (0.0-1.0); MONOCYTES % (AUTO) 5.4 %; NEUTROPHILS # (AUTO) 5.7 10^3/uL (1.5-6.6); NEUTROPHILS % (AUTO) 85.1 %; PLT - PLATELET COUNT 121 10^3/uL (130-450); RED BLOOD COUNT 4.01 10^6/uL (4.20-5.40); RED CELL DISTRIBUTION WIDTH 13.6 % (12.0-15.0); WHITE BLOOD COUNT 6.7 x10^3/uL (4.8-10.8)
[2021-04-08 06:33] LABS: CALCIUM 8.3 mg/dL (8.5-10.3); CREATININE 0.7 mg/dL (0.4-1.0); POTASSIUM 3.5 mmol/L (3.5-5.0)
[2021-04-08] MEDS: SACCHAROMYCES BOULARDII 250 MG CAPSULE PO SCH ×2 (08:28→16:51)
[2021-04-08] MEDS: cefTRIAXone 2 GM in SODIUM CHLORIDE 0.9% MINIBAG 100 ML IV SCH (08:32)
[2021-04-08] MEDS: ENOXAPARIN 40 MG/0.4 ML SYRINGE SUBQ SCH (08:37)
[2021-04-08] MEDS: CITALOPRAM 10 MG TABLET PO SCH (08:37)
[2021-04-08] MEDS: DONEPEZIL 5 MG TABLET PO SCH (08:37)
[2021-04-08] MEDS: guaiFENesin 600 MG TABLET PO SCH ×2 (08:50→21:19)
[2021-04-08] MEDS: AZITHROMYCIN INJ 500 MG in SODIUM CHLORIDE 0.9% 250 ML IV SCH (09:24)
--- NOTE | 2021-04-08 14:59 | PROVIDER PROGRESS NOTE ---
Subjective - Prog Note Date Prog Note Date: 04/08/21 - Subjective Subjective: She feels much better overall today. Still little short of breath but improved. Still has an occasional cough. Denies chest pain. Current Medications - Current Medications Current Medications: Vital Signs - 24 hr 04/07/21 04/08/21 04/08/21 18:00 00:47 05:12 Temperature 36.6 C 36.6 C 36.5 C Heart Rate [ 61 55 L 59 L Brachial] Respiratory 16 17 18 Rate Blood Pressure 136/58 H 118/77 140/60 H [Right Brachial artery] O2 Saturation 100 98 92 04/08/21 04/08/21 04/08/21 07:59 10:30 11:47 Temperature 36.7 C Heart Rate [ 59 L Brachial] Respiratory 16 Rate Blood Pressure 116/54 L [Right Brachial artery] O2 Saturation 97 90 L 93 Oxygen O2 Source Nasal cannula Oxygen Flow Rate 2 Objective - Vital Signs/Intake & Output Reviewed Vital Signs: Yes Vital Signs: Vital Signs x48h Temp Pulse Resp BP Pulse Ox 04/08/21 11:47 93 04/08/21 10:30 90 L 04/08/21 07:59 36.7 C 59 L 16 116/54 L 97 Intake & Output: Intake & Output 04/05/21 04/06/21 04/07/21 04/08/21 23:59 23:59 23:59 23:59 Intake Total 450 2310 640 Balance 450 2310 640 - Objective General Appearance: positive: No acute distress, Alert Eyes Bilateral: positive: Normal inspection, Conjunctivae nml ENT: positive: ENT inspection nml, Other (Nasal cannula in place.) Respiratory: positive: No respiratory distress, Rhonchi. negative: Wheezes, Rales Cardiovascular: positive: Regular rate & rhythm. negative: Tachycardia Skin: positive: Warm, Dry Extremities: positive: No pedal edema - Lab Results Fish Bones: 04/08/21 05:49 04/08/21 05:49 Other Labs: Lab Results x24hrs 04/08/21 04/08/21 Range/Units 05:49 05:49 WBC 6.7 (4.8-10.8) x10^3/uL RBC 4.01 L (4.20-5.40) 10^6/uL Hgb 13.3 (12.0-16.0) g/dL Hct 39.9 (37.0-47.0) % MCV 99.5 H (81.0-99.0) fL MCH 33.2 H (27.0-31.0) pg MCHC 33.3 (32.0-36.0) g/dL RDW 13.6 (12.0-15.0) % Plt Count 121 L (130-450) 10^3/uL MPV 12.3 H (7.9-10.8) fL Neut # (Auto) 5.7 (1.5-6.6) 10^3/uL Lymph # (Auto) 0.3 L (1.5-3.5) 10^3/uL Bollinger # (Auto) 0.4 (0.0-1.0) 10^3/uL Eos # (Auto) 0.3 (0.0-0.7) 10^3/uL Baso # (Auto) 0.0 (0.0-0.1) 10^3/uL Absolute Nucleated RBC 0.00 x10^3/uL Nucleated RBC % 0.0 /100WBC Sodium 135 (135-145) mmol/L Potassium 3.5 (3.5-5.0) mmol/L Chloride 102 (101-111) mmol/L Carbon Dioxide 25 (21-32) mmol/L Anion Gap 8.0 (6-13) BUN 14 (6-20) mg/dL Creatinine 0.7 (0.4-1.0) mg/dL Estimated GFR (MDRD) 80 L (>89) Glucose 94 (70-100) mg/dL Calcium 8.3 L (8.5-10.3) mg/dL ABX Reporting Has patient been on IV antibiotics over the past 48 hours?: Yes Assessment/Plan - Problem List (1) Left upper lobe pneumonia Impression: White count remains normal and she is afebrile. Her oxygen requirements are also improved but she still requires 1 L of oxygen. We will keep on IV antibiotics for 1 more day and hope to transition to oral antibiotics tomorrow with possible discharge tomorrow. Qualifiers: Pneumonia type: due to unspecified organism Qualified Code(s): J18.9 - Pneumonia, unspecified organism (2) Hypoxia Impression: This is secondary to pneumonia. She is now down to 1 L of oxygen. She was saturating 90-91% on room air. I am hopeful she can be weaned off of oxygen overnight and the plan is to discharge tomorrow. (3) Dementia Impression: Stable. Continue home medications. Qualifiers: Dementia type: unspecified type Dementia behavioral disturbance: without behavioral disturbance Qualified Code(s): F03.90 - Unspecified dementia w ithout behavioral disturbance (4) History of lung cancer Impression: Stable with no evidence of remission on imaging.
[2021-04-08] MEDS: guaiFENesin/CODEINE 5 ML UDC PO PRN (21:19)
[2021-04-08] MEDS: NITROFURANTOIN MACRO 100 MG CAPSULE PO SCH (21:19)
[2021-04-09] MEDS: SODIUM CHLORIDE FLUSH 0.9% 10 ML SYRINGE IVP SCH ×2 (01:07→09:22)
[2021-04-09 05:41] LABS: BASOPHILS % (AUTO) 0.6 %; EOSINOPHILS # (AUTO) 0.4 10^3/uL (0.0-0.7); EOSINOPHILS % (AUTO) 7.3 %; HCT - HEMATOCRIT 38.2 % (37.0-47.0); HGB - HEMOGLOBIN 12.7 g/dL (12.0-16.0); LYMPHOCYTES # (AUTO) 0.4 10^3/uL (1.5-3.5); LYMPHOCYTES % (AUTO) 8.3 %; MEAN CORPUSCULAR HEMOGLOBIN 32.5 pg (27.0-31.0); MEAN CORPUSCULAR HGB CONC 33.2 g/dL (32.0-36.0); MEAN CORPUSCULAR VOLUME 97.7 fL (81.0-99.0); MEAN PLATELET VOLUME 12.3 fL (7.9-10.8); MONOCYTES # (AUTO) 0.5 10^3/uL (0.0-1.0); MONOCYTES % (AUTO) 10.4 %; NEUTROPHILS # (AUTO) 3.5 10^3/uL (1.5-6.6); PLT - PLATELET COUNT 133 10^3/uL (130-450); RED BLOOD COUNT 3.91 10^6/uL (4.20-5.40); RED CELL DISTRIBUTION WIDTH 13.7 % (12.0-15.0); WHITE BLOOD COUNT 4.8 x10^3/uL (4.8-10.8)
[2021-04-09 05:48] LABS: CALCIUM 8.3 mg/dL (8.5-10.3); CREATININE 0.6 mg/dL (0.4-1.0); POTASSIUM 3.6 mmol/L (3.5-5.0)
--- NOTE | 2021-04-09 07:36 | Discharge Plan ---
Discharge Plan for SNF / [facility] - Discharge Plan And Transition Orders Problem Reviewed?: Yes Disposition: 06 Home Health Service Condition: Stable Allergies and Adverse Reactions: Allergies Allergy/AdvReac Type Severity Reaction Status Date / Time No Known Drug Allergies Allergy Verified 04/06/21 13:47 Health Concerns: You were admitted to the hospital because of pneumonia. You were treated with IV antibiotics and started on oxygen. You improved over the next 2 days and your white blood cell count is normal and you are no longer requiring oxygen. We did a CT scan of your chest which showed the pneumonia but there was no evidence of cancer. Plan of Treatment: You have already completed 3 days of azithromycin. You have also completed 3 days of ceftriaxone. We will continue on oral Ceftin for 3 more days to complete 7 days of therapy for the pneumonia. The dose is 500 mg twice daily. You will begin this antibiotic on the and it will finish on 12 of April. Assessment: The patient expressed understanding of the treatment plan. - SNF / [facility] Transition Orders Admit to (Facility): [facility] Discharge Diagnosis: Left upper lobe pneumonia Hypoxia Dementia History of lung cancer Medicare Certification Statement: I certify that Post Hospital jail care is medically necessary on a continuing basis for any of the conditions for which she/he is receiving care during hospitalization. Notify PCP of admission and forward orders to primary provider for signature. Other Notification Orders: Call PCP immediately if patient develops dyspnea, chest pain/tightness or edema. Additional Bowel Program Orders: If no BM after 2 days, nurse may give M.O.M. 30ml PO PRN and/or ducolax Supp 1 ME and/or KATHARINE 250mg P.O., and/or senna 1-2 tabs PO. On day 3 nurse may give repeat above order until residents constipation is resolved. Medication Orders: PLEASE REFER TO THE DISCHARGE MEDICATION LIST. Insulin Orders?: No - Medications New Prescriptions: cefUROXime axetiL [Ceftin] 500 mg PO BID 3 Days #12 tablet Benzonatate [Tessalon] 100 mg PO TID PRN #14 cap PRN Reason: Cough Ondansetron Odt [Zofran Odt] 4 mg TL Q6H PRN #10 tablet PRN Reason: Nausea / Vomiting - Diet Type: Geriatric Texture: Regular Liquids: Thin Follow Up: She should follow-up with her primary care physician in 1 to 2 weeks.
--- NOTE | 2021-04-09 07:41 | DISCHARGE SUMMARY ---
Discharge Summary Admit Date: 04/06/21 Discharge Date: 04/09/21 Discharging Provider: Riley Alonso Primary Care Provider: Charu Whitehead Code Status: Do Not Attempt Resuscitation Condition at Discharge: Stable Discharge Disposition: Home Health Service [facility]: [facility] - DIAGNOSES Admission Diagnoses: Acute respiratory failure with hypoxia Left upper lobe pneumonia Dementia History of lung cancer Discharge Diagnoses with Status of Each Condition: Left upper lobe pneumonia - improved. Hypoxia - resolved. Dementia - stable. History of lung cancer - stable. - HPI History of Present Illness: H&P per Dr. Frost: This is a 85-year-old white female with history of dementia who lives at [facility], and history of lung cancer (treated with radiation in 2004 and gamma knife in 2013 in [place]). The patient has recently required 2 courses of treatment for pneumonia, having received Levaquin and then Bactrim as an outpatient. Despite this, she has had worsening shortness of breath over the last 2 to 3 days. She was seen by her PCP, Janeen Lopez, today and oxygen saturation in the PCP office was 84% on room air and the patient was sent to the ED. There had been a plan to do outpatient chest CT to evaluate if the lung cancer had recurred. In our ED she was saturating at 87% on room air and was mildly tachypneic. A CT chest was done that showed left upper lobe pneumonia (read as ground glass opacification) and trace bilateral pleural effusion, no description of a lung mass or lymphadenopathy. In the ED, the patient was started on supplemental O2 and given Ceftriaxone and Zithromax treatment for a community-acquired pneumonia and is being admitted to the Hospitalist service. The patient provides very little details of her history because of her dementia, but feels better now except for a hacking, wet cough, that is non-productive. A POLST form is available and the patient is a DNR and wants comfort-focus treat ment. - HOSPITAL COURSE Hospital Course: She was admitted for hypoxia secondary to a left upper lobe infiltrate. This was evident on CT of the chest. She initially required 2 L of oxygen via nasal cannula. She was treated with ceftriaxone and azithromycin. Her oxygen requirements improved over the next 48 hours and she is now on room air. Her white count is also within normal limits. She was checked for Covid and this was negative. She is now stable for discharge home. She has already completed 3 days of azithromycin and ceftriaxone during this hospitalization. She was prescribed Ceftin for 3 more days to complete 7 days of therapy. - ALLERGIES Allergies/Adverse Reactions: Allergies Allergy/AdvReac Type Severity Reaction Status Date / Time No Known Drug Allergies Allergy Verified 04/06/21 13:47 - MEDICATIONS Home Medications: Ambulatory Orders Medication Instructions Recorded Confirmed Citalopram [CeleXA] 10 mg PO DAILY 04/06/21 04/07/21 Donepezil [Aricept] 5 mg PO DAILY 04/06/21 04/07/21 Docusate Sodium 100Mg Capsule 100 mg PO BID 04/07/21 04/07/21 [Colace 100Mg Capsule] Lifitegrast [Xiidra] 1 drops EACHEYE BID 04/07/21 04/07/21 Nitrofurantoin Macrocrystal 50 mg PO QPM 04/07/21 04/07/21 [Macrodantin] Benzonatate [Tessalon] 100 mg PO TID PRN #14 cap 04/09/21 Ondansetron Odt [Zofran Odt] 4 mg TL Q6H PRN #10 tablet 04/09/21 cefUROXime axetiL [Ceftin] 500 mg PO BID 3 Days #12 tablet 04/09/21 - PHYSICAL EXAM AT DISCHARGE General Appearance: positive: No acute distress, Alert Eyes Bilateral: positive: Normal inspection, Conjunctivae nml ENT: positive: ENT inspection nml Neck: positive: Nml inspection Respiratory: positive: No respiratory distress, Rhonchi (Faint rhonci left upper lobe.). negative: Wheezes Cardiovascular: positive: Regular rate & rhythm. negative: Tachycardia Abdomen: positive: Non-tender, No distention. negative: Tenderness Skin: positive: Warm, Dry Extremities: positive: No pedal edema Neurologic/Psychiatric: negative: Disoriented to person, Disoriented to place Physical Exam Other/Comments: Vital Signs - 24 hr 04/08/21 04/09/21 04/09/21 23:49 07:37 11:38 Temperature 36.6 C 37.1 C 36.7 C Heart Rate [ 57 L 68 Brachial] Heart Rate [ 60 Monitoring electrodes] Respiratory 18 16 16 Rate Blood Pressure 153/71 H 132/61 H 119/43 L [Right Brachial artery] O2 Saturation 94 93 96 Oxygen O2 Source Room air Oxygen Flow Rate 2 - LABS Result Diagrams: 04/09/21 04:44 04/09/21 04:44 - DIAGNOSTIC IMAGING Diagnostic Imaging Results: Final report reviewed - FOLLOW UP Follow Up: She will need primary care physician follow-up in 1 to 2 weeks. - TIME SPENT Time Spent in Discharge (Minutes): 32
[2021-04-09] MEDS ORDERED: cefTRIAXone 2 GM in SODIUM CHLORIDE 0.9% MINIBAG 100 ML IV SCH (09:00)
[2021-04-09] MEDS: CITALOPRAM 10 MG TABLET PO SCH (09:21)
[2021-04-09] MEDS: DONEPEZIL 5 MG TABLET PO SCH (09:21)
[2021-04-09] MEDS: guaiFENesin 600 MG TABLET PO SCH (09:21)
[2021-04-09] MEDS: SACCHAROMYCES BOULARDII 250 MG CAPSULE PO SCH (09:22)
[2021-04-09] MEDS: ENOXAPARIN 40 MG/0.4 ML SYRINGE SUBQ SCH (09:22)
[2021-04-09 10:35] LABS: B. PARAPERTUSSIS- RESP PCR PAN NOT DETECTED; B. PERTUSSIS- RESP PCR PANEL NOT DETECTED; C. PNEUMONIAE- RESP PCR PANEL NOT DETECTED; CORONAVIRUS 229E-RESP PCR NOT DETECTED; CORONAVIRUS HKU1-RESP PCR NOT DETECTED; CORONAVIRUS NL63-RESP PCR NOT DETECTED; CORONAVIRUS OC43-RESP PCR NOT DETECTED; HUMAN METAPNEUMOVIRUS NOT DETECTED; INFLUENZA A- RESP PCR PANEL NOT DETECTED; INFLUENZA B - RESP PCR PANEL NOT DETECTED; M. PNEUMONIAE- RESP PCR PANEL NOT DETECTED; PARAINFLUENZA VIRUS 1 NOT DETECTED; PARAINFLUENZA VIRUS 2 NOT DETECTED; PARAINFLUENZA VIRUS 3 NOT DETECTED; PARAINFLUENZA VIRUS 4 NOT DETECTED; RHINOVIRUS/ENTEROVIRUS NOT DETECTED; RSV- RESP PCR PANEL NOT DETECTED; SARS-CoV-2 -RESP PCR PANEL NOT DETECTED
[2021-04-09 11:40] VITALS: BP 119/43
== END 2021-04-09 12:23 | disposition home health service (06) | DRG 193 ==
LOC: EDUNIT# → ED 13:37 → MS2 16:53
PROVIDERS: ADMIT Internal Medicine; ATTEND Internal Medicine
DX: J18.9 Pneumonia, unspecified organism (principal); J96.01 Acute respiratory failure with hypoxia; F03.90 Unspecified dementia, unspecified severity, without behavioral disturbance, psychotic disturbance, mood disturbance, and anxiety; R32 Unspecified urinary incontinence; Z20.822 Contact with and (suspected) exposure to COVID-19; Z66 Do not resuscitate; Z79.899 Other long term (current) drug therapy; Z85.118 Personal history of other malignant neoplasm of bronchus and lung; Z87.891 Personal history of nicotine dependence; Z92.3 Personal history of irradiation
CPT/HCPCS: 36415; 71045; 71260; 74177; 80048; 80053; 81003; 83605; 83690; 83880; 84484; 85025; 87631; 93005; 96374; 97162; 97165; 97530; 99284; 99285; A9270; J1650; J7120; Q0162; Q9967; 0202U; 81001; 87086

== ENCOUNTER 2021-04-24 07:00 | Outpatient (CLI) | payer MEDICARE, OTHER | END 2021-04-24 07:01 | disposition critical access hospital (66) | LOC: EMS 07:00 | DX: R07.89 Other chest pain (principal); R07.81 Pleurodynia | CPT/HCPCS: A0425; A0429 ==

== ENCOUNTER 2021-04-24 07:17 | Emergency (ER) | payer MEDICARE, OTHER ==
--- NOTE | 2021-04-24 07:47 | ED Physician Documentation ---
PD HPI CHEST PAIN - Stated complaint Stated Complaint: CHEST PX - History obtained from History obtained from: Patient - History of Present Illness Timing - onset: How many days ago (few days of increasing pain left lower chest/flank area, worse with movement and more with breathing.) Timing - onset during: Rest Timing - details: Gradual onset, Still present Quality: Aching, Sharp, Pain Location: Left chest Radiation: Back (flank area) Improved by: Other (taking Tylenol PRN but states it takes long time for nurses to bring her the meds when she asks for it.). No: Rest Worsened by: Inspiration Associated symptoms: No: Shortness of air, Nausea, Feeling faint / dizzy, Cough Similar symptoms before: Has not had sx before Recently seen: Other (recenlty treated for pneumonia and had left effusion. 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 : Incontinence - Past Surgical History Ortho: Other - Present Medications Home Medications: Ambulatory Orders Medication Instructions Recorded Confirmed Citalopram [CeleXA] 10 mg PO DAILY 04/06/21 04/24/21 Donepezil [Aricept] 5 mg PO DAILY 04/06/21 04/24/21 Docusate Sodium 100Mg Capsule 100 mg PO BID 04/07/21 04/24/21 [Colace 100Mg Capsule] Lifitegrast [Xiidra] 1 drops EACHEYE BID 04/07/21 04/24/21 Nitrofurantoin Macrocrystal 50 mg PO QPM 04/07/21 04/24/21 [Macrodantin] Benzonatate [Tessalon] 100 mg PO TID PRN #14 cap 04/09/21 04/24/21 Acetaminophen [Acetaminophen Extra 500 mg PO QID PRN #30 tablet 04/24/21 Strength] Acetaminophen [Aphen] 650 mg PO Q4HR PRN 04/24/21 04/24/21 Calcium Carbonate [Calcium Antacid] 1,000 mg PO BID PRN 04/24/21 04/24/21 Carboxymethylcellulose Sodium 1 drops EACHEYE Q8HR PRN 04/24/21 04/24/21 [Artificial Tears] HYDROcod/ACETAM 5/325 [[place] 5/325] 1 ea PO Q6H PRN #10 tablet 04/24/21 Naproxen 250 mg PO BID 7 Days #14 tablet 04/24/21 Trolamine Salicylate [Aspercreme] 1 applic TOP Q4HR PRN 04/24/21 04/24/21 - Allergies Allergies/Adverse Reactions: Allergies Allergy/AdvReac Type Severity Reaction Status Date / Time No Known Drug Allergies Allergy Verified 04/24/21 07:45 - Social History Does the pt smoke?: No Smoking Status: Former smoker - POLST Patient has POLST: Yes POLST Status: DNR PD ED PE NORMAL - Vitals Vital signs reviewed: Yes - General General: Alert and oriented X 3, Well developed/nourished, Other (appears in sharp pain with movement and breathing. ) - Neck Neck: Supple, no meningeal sign, No adenopathy - Cardiac Cardiac: RRR, No murmur - Respiratory Respiratory: Clear bilaterally, Other (left lower chestwall tenderness posterolateral without redness nor rash. No crepitance. ) - Abdomen Abdomen: Soft, Non tender - Female Female : Deferred - Rectal Rectal: Deferred - Back Back: No CVA TTP - Derm Derm: Normal color, Warm and dry, No rash - Extremities Extremities: No edema, No calf tenderness / cord - Neuro Neuro: Alert and oriented X 3, No motor deficit, Normal speech Results - Vitals Vitals: Vital Signs - 24 hr 04/24/21 04/24/21 04/24/21 07:30 11:48 13:03 Temperature 36.1 C L 36.7 C 36.6 C Heart Rate 60 53 L 48 L Respiratory 20 17 12 Rate Blood Pressure 156/72 H 109/59 L 147/68 H O2 Saturation 97 95 95 Oxygen O2 Source Room air - Labs Labs: Laboratory Tests 04/24/21 04/24/21 04/24/21 09:00 09:00 09:00 WBC 5.8 RBC 4.21 Hgb 13.7 Hct 41.4 MCV 98.3 MCH 32.5 H MCHC 33.1 RDW 14.3 Plt Count 162 MPV 11.8 H Neut # (Auto) 3.7 Lymph # (Auto) 0.7 L [place] # (Auto) 0.8 Eos # (Auto) 0.5 Baso # (Auto) 0.1 Absolute Nucleated RBC 0.00 Nucleated RBC % 0.0 Sodium 138 Potassium 3.5 Chloride 105 Carbon Dioxide 23 Anion Gap 10.0 BUN 12 Creatinine 0.7 Estimated GFR (MDRD) 80 L Glucose 87 Calcium 8.9 Total Bilirubin 0.6 AST 18 ALT 17 Alkaline Phosphatase 99 Troponin I High Sens 9.9 B-Natriuretic Peptide Total Protein 6.7 Albumin 3.6 Globulin 3.1 Albumin/Globulin Ratio 1.2 Lipase 26 04/24/21 09:00 WBC RBC Hgb Hct MCV MCH MCHC RDW Plt Count MPV Neut # (Auto) Lymph # (Auto) [place] # (Auto) Eos # (Auto) Baso # (Auto) Absolute Nucleated RBC Nucleated RBC % Sodium Potassium Chloride Carbon Dioxide Anion Gap BUN Creatinine Estimated GFR (MDRD) Glucose Calcium Total Bilirubin AST ALT Alkaline Phosphatase Troponin I High Sens B-Natriuretic Peptide 143 H Total Protein Albumin Globulin Albumin/Globulin Ratio Lipase - Rads (name of study) chest CT Radiology: Prelim report reviewed (decreased size of infiltrate and effusion. No fractures. ), See rad report PD MEDICAL DECISION MAKING - ED course Complexity details: reviewed results (ches CT showing improved effusion and infiltrate. No rib injuries. I presume she is having pleurisy as the effusion lessens and now the pleura is rubbing the chest wall. ), re-evaluated patient (patient states pain improved with meds here. She is still alert and conversant, so seems to tolerate some level of opiates. ), considered differential, d/w patient Departure - Departure Disposition: 01 Home, Self Care Clinical Impression: Left-sided chest pain, Pleurisy Condition: Stable Record reviewed to determine appropriate education?: Yes Instructions: ED Chest Pain Pleurisy Prescriptions: Acetaminophen [Acetaminophen Extra Strength] 500 mg PO QID PRN #30 tablet PRN Reason: Pain Naproxen 250 mg PO BID 7 Days #14 tablet HYDROcod/ACETAM 5/325 [[place] 5/325] 1 ea PO Q6H PRN #10 tablet PRN Reason: Pain Comments: Your CT scan of the chest shows improvement in the fluid around the lung and pneumonia appearance. I believe your pain is coming from the lung surface now being more in contact with the chest wall as the effusion improves. This creates a rubbing of the lung against the chest wall called pleurisy and causes pain. This should improve with some anti-inflammatories and time. Naproxen 250 mg twice daily with food for the next week. Also acetaminophen 500 mg 4 times a day regularly for the next 7 to 10 days. To that add hydrocodone 5 mg every 8 hours if needed for worse pain. Follow-up with your primary care if not improved well over the next several days. I transmitted your prescriptions to the pharmacy in [place]. My narcotic instructions I am prescribing a short course of narcotic pain medication for you. These are potentially dangerous and addictive medications that should be used carefully. These medications may constipate you. Take an [id number] stool softener such as docusate twice daily with plenty of water while taking these medications. If you go 24 hours without a bowel movement, take [id number] MiraLAX, per package instructions. Do not drink or drive while taking these medications. If you received narcotic or sedating medications while in the emergency department do not drive for 24 hours. Store this medication in a safe, secure place and out of reach of children. It is a violation of federal law to give or sell this medication to another person or to use in a manner other than prescribed. The ED will not refill narcotic prescriptions, including prescriptions lost or stolen. You can dispose of unwanted medications at the [facility]'s office or at several pharmacies such as [facility]. Discharge Date/Time: 04/24/21 13:29
[2021-04-24] MEDS ORDERED: MORPHINE 2 MG/ML CARPUJECT IVP STA (08:35)
[2021-04-24] MEDS ORDERED: KETOROLAC 15 MG/ML VIAL IVP STA (08:36)
--- NOTE | 2021-04-24 08:57 | XRAY Report ---
PROCEDURE: Chest 1 View X-Ray INDICATIONS: Chest Pain TECHNIQUE: One view of the chest was acquired. COMPARISON: CT chest and CXR 04/06/2021. FINDINGS: Surgical changes and devices: None. Lungs and pleura: Blunting of the costophrenic angles. No pneumothorax. Mild streaky opacity in the m id left lung is slightly increased. Emphysematous change. Mediastinum: Mediastinal contours appear unchanged. Heart size is normal. Bones and chest wall: No suspicious bony lesions. Overlying soft tissues appear unremarkable. IMPRESSION: Slight increase in the streaky opacity in the left midlung field. This could be due to atelectasis or pleural fluid tracking in the major fissure. Emphysematous change. Reviewed by: Janusz Baker MD on 04/24/2021 8:56 AM PST Approved by: Janusz Baker MD on 04/24/2021 8:56 AM PST Station ID: [id number]
[2021-04-24 09:09] LABS: BASOPHILS # (AUTO) 0.1 10^3/uL (0.0-0.1); BASOPHILS % (AUTO) 1.9 %; EOSINOPHILS # (AUTO) 0.5 10^3/uL (0.0-0.7); EOSINOPHILS % (AUTO) 8.3 %; HCT - HEMATOCRIT 41.4 % (37.0-47.0); HGB - HEMOGLOBIN 13.7 g/dL (12.0-16.0); LYMPHOCYTES # (AUTO) 0.7 10^3/uL (1.5-3.5); MEAN CORPUSCULAR HEMOGLOBIN 32.5 pg (27.0-31.0); MEAN CORPUSCULAR HGB CONC 33.1 g/dL (32.0-36.0); MEAN CORPUSCULAR VOLUME 98.3 fL (81.0-99.0); MEAN PLATELET VOLUME 11.8 fL (7.9-10.8); MONOCYTES # (AUTO) 0.8 10^3/uL (0.0-1.0); MONOCYTES % (AUTO) 13.7 %; NEUTROPHILS # (AUTO) 3.7 10^3/uL (1.5-6.6); NEUTROPHILS % (AUTO) 63.9 %; PLT - PLATELET COUNT 162 10^3/uL (130-450); RED BLOOD COUNT 4.21 10^6/uL (4.20-5.40); RED CELL DISTRIBUTION WIDTH 14.3 % (12.0-15.0); WHITE BLOOD COUNT 5.8 x10^3/uL (4.8-10.8)
[2021-04-24] MEDS ORDERED: iohexoL-300 100 ML VIAL ONE (09:16)
[2021-04-24 09:20] LABS: ALBUMIN 3.6 g/dL (3.2-5.5); ALBUMIN/GLOBULIN RATIO 1.2 (1.0-2.2); BILIRUBIN,TOTAL 0.6 mg/dL (0.2-1.0); CALCIUM 8.9 mg/dL (8.5-10.3); CREATININE 0.7 mg/dL (0.4-1.0); POTASSIUM 3.5 mmol/L (3.5-5.0); TOTAL PROTEIN 6.7 g/dL (6.7-8.2)
[2021-04-24] MEDS ORDERED: iohexoL-300 100 ML VIAL IVP ONE (10:32)
--- NOTE | 2021-04-24 10:53 | CT Report ---
PROCEDURE: CHEST W INDICATIONS: left lower chest pain, pleuritic. recent pneumonia CONTRAST: IV CONTRAST: Isovue 300 ml: 80 PO CONTRAST: *NO PO CONTRAST TECHNIQUE: After the administration of intravenous contrast, 1 mm axial images were acquired from the pulmonary apices through the posterior costophrenic angles. Axial 5 mm soft tissue kernel reconstructions were performed as well as 8 mm axial MIP and coronal and sagittal 5 mm reformations. For radiation dose reduction, the following was used: automated exposure control, adjustment of mA and/or kV according to patient size. COMPARISON: None. FINDINGS: Image quality: Excellent. Lungs and pleura: Small amount of fluid within the posterior left major fissure slightly decreased fr om prior examination which may still appear to be loculated. No definite enhancement of the adjacent pleura. Small dependent left pleural effusion slightly improved from prior exam. Emphysema. Mild bron chial wall thickening. Likely occupies within the left lower lobe bronchi again identified decreased from prior exam. Mild debris within the distal trachea. There is dependent atelectasis. Interval impr ovement of the previously noted groundglass opacity of the left upper lobe. There is more focal linea r atelectasis within the left upper lobe. Mediastinum: Heart size is normal. Marked coronary vascular calcifications. No pericardial effusion . No mediastinal or hilar adenopathy by size criteria. Thoracic aorta and central pulmonary arterie s are normal in size. Esophagus is normal in caliber. No hiatal hernia. Bones and chest wall: No suspicious bony lesions. No vertebral body compression fractures. No axil fernanda or supraclavicular adenopathy by size criteria. The thyroid is normal in size and there are no incidental findings.. Abdomen: Multiple hypodensities throughout the liver likely representing cysts are unchanged. Upper a bdominal bowel loops are normal in caliber. No acute abnormality. IMPRESSION: Interval improvement of the previously noted groundglass opacity in the left upper lobe. Slightly dec reased amount of fluid within the left major fissure which may be slightly loculated. Improvement of pleural fluid with small left-sided pleural effusion remaining. Emphysema. Coronary vascular calcifications. Reviewed by: Drew Peoples DO on 04/24/2021 9:51 AM [facility] Approved by: Drew Peoples DO on 04/24/2021 9:51 AM [facility] Station ID: [id number]
[2021-04-24 13:04] VITALS: BP 147/68
== END 2021-04-24 13:29 | disposition home or self-care (01) ==
LOC: EDUNIT# → ED 07:17
DX: R09.1 Pleurisy (principal); Z87.891 Personal history of nicotine dependence; Z66 Do not resuscitate
CPT/HCPCS: 36415; 71045; 71260; 80053; 83690; 83880; 84484; 85025; 93005; 96374; 99282; 99284; Q9967

== ENCOUNTER 2021-05-03 08:00 | Outpatient (CLI) | payer MEDICARE, OTHER ==
--- NOTE | 2021-05-03 16:31 | XRAY Report ---
PROCEDURE: Wrist 3 View RT INDICATIONS: RIGHT WRIST PAIN S/P FALL TECHNIQUE: 3 views of the wrist were acquired. COMPARISON: None FINDINGS: Bones: No fractures or dislocations. No suspicious bony lesions. Scaphoid view: Not obtained Soft tissues: No suspicious soft tissue calcifications. IMPRESSION: No visualized acute fracture or dislocation. However, occult injury cannot be excluded. Recommend taty rt interval imaging follow-up in 7-10 days as clinically indicated for additional evaluation. Reviewed by: Nancy Palmer MD on 05/03/2021 4:30 PM PST Approved by: Nancy Palmer MD on 05/03/2021 4:30 PM [facility] Station ID: [id number]
== END 2021-05-03 23:59 ==
LOC: DI.N 08:00
PROVIDERS: ATTEND Physician Assistant Medical
DX: S62.91XA Unspecified fracture of right hand, initial encounter for closed fracture (principal)

== ENCOUNTER 2021-06-01 07:46 | Outpatient (CLI) | payer MEDICARE, OTHER ==
--- NOTE | 2021-06-01 17:46 | XRAY Report ---
PROCEDURE: Wrist 3 View RT INDICATIONS: RIGHT WRIST FRACTURE TECHNIQUE: 3 views of the wrist were acquired. COMPARISON: 05/03/2021 FINDINGS: Bones: No fractures or dislocations. No suspicious bony lesions. Moderate right triscaphe joint ost eoarthritis. Soft tissues: No suspicious soft tissue calcifications. IMPRESSION: No fracture. No acute osseous lesion. If there persistent symptoms or continued clinical concern for pathology, then advanced imaging (CT, MR, bone scan) should be considered for further evaluation. Reviewed by: Mei Peñaloza MD, PhD on 06/01/2021 5:45 PM PST Approved by: Mei Peñaloza MD, PhD on 06/01/2021 5:45 PM PST Station ID: [id number]
== END 2021-06-01 07:47 | disposition home or self-care (01) ==
LOC: DI.WOS 07:46
PROVIDERS: ATTEND Physician Assistant
DX: S62.91XA Unspecified fracture of right hand, initial encounter for closed fracture (principal); S60.211A Contusion of right wrist, initial encounter